=== PATIENT | female | born 1970 | race Two or more races ===

== ENCOUNTER 2020-04-08 08:02 | Outpatient (REF) | payer MEDICAID, SELFPAY | END 2020-04-08 08:03 | disposition home or self-care (01) | LOC: HO.LAB 08:02 | PROVIDERS: Visit Provider Internal Medicine | DX: Z20.828 Contact with and (suspected) exposure to other viral communicable diseases (principal) | CPT/HCPCS: 36415; C9803; U0003 ==

== ENCOUNTER 2021-02-16 12:51 | Outpatient (REF) | payer MEDICAID, SELFPAY ==
[2021-02-19 02:36] LABS: HPV mRNA E6/E7 rflx Not Detected (Not Detected)
== END 2021-02-16 12:52 | disposition home or self-care (01) ==
LOC: HO.LAB 12:51
PROVIDERS: PCP Nurse Practitioner Women's Health; Visit Provider Obstetrics & Gynecology
DX: Z01.419 Encounter for gynecological examination (general) (routine) without abnormal findings (principal); Z11.51 Encounter for screening for human papillomavirus (HPV)
CPT/HCPCS: 87624; 88142

== ENCOUNTER 2021-03-17 08:46 | Emergency (ER) | payer MEDICAID, SELFPAY ==
--- NOTE | ~2021-03-17 | XR_ITS ---
EXAMINATION: XR CHEST CLINICAL INFORMATION: Chest pain COMPARISON: Chest 12/08/2018 TECHNIQUE: Frontal view of the chest was obtained. FINDINGS: The lungs are well-expanded and clear of acute process. The heart size and pulmonary vascularity is normal. No gross bony abnormality seen. XR/XR chest 1V IMPRESSION: Unremarkable chest exam.
--- NOTE | 2021-03-17 08:49 | ECG_ITS ---
Test Reason : chest pain Blood Pressure : / mmHG Vent. Rate : 078 BPM Atrial Rate : 078 BPM P-R Int : 160 ms QRS Dur : 074 ms QT Int : 376 ms P-R-T Axes : 046 064 038 degrees QTc Int : 428 ms Normal sinus rhythm Normal ECG No previous ECGs available Referred By: Generic ED Physician Electronically Signed By:VERNA POWELL MD
[2021-03-17 09:09] VITALS: BP 135/90; PULSE 78; RESP 18; TEMP 36.9; O2SAT 98; BMI 28.5
[2021-03-17 10:22] LABS: MANUAL DIFF FLAG NO
[2021-03-17 10:25] LABS: Basophils Percent Auto 0.4 % (0-2); Eosinophils Absolute Auto 0.1 X10*3/uL (0.0-0.4); Eosinophils Percent Auto 1.1 % (0-4); Hematocrit 41.1 % (37.0-47.0); Hemoglobin 13.7 g/dl (12.0-16.0); Imm Gran Abs Auto 0.01 X10*3/uL (0.00-0.03); Imm Gran Pct Auto 0.2 % (0.0-0.4); Lymphocytes Absolute Auto 1.8 X10*3/uL (1.2-4.9); Lymphocytes Percent Auto 33.9 % (20-40); Mean Corpuscular HGB Conc 33.3 g/dl (31.0-35.0); Mean Corpuscular Hemoglobin 33.2 pg (27.0-33.0); Mean Corpuscular Volume 99.5 fL (80.0-98.0); Mean Platelet Volume 10.2 fL (9.4-12.3); Monocytes Absolute Auto 0.6 X10*3/uL (0.1-1.2); Monocytes Percent Auto 11.7 % (2-11); Neutrophils Absolute Auto 2.9 x10*3/uL (2.0-8.3); Neutrophils Percent Auto 52.7 % (45-73); Platelet Count 290 X10*3/uL (160-400); Red Blood Count 4.13 X10*6/uL (4.20-5.50); Red Cell Distribution Width 12.4 % (11.0-16.0); White Blood Count 5.4 X10*3/uL (4.8-10.8)
[2021-03-17 10:43] LABS: Anion Gap 12 (12-20); Blood Urea Nitrogen 14 mg/dL (9-16); Calcium 9.9 mg/dL (8.4-10.2); Carbon Dioxide 27 mmol/L (22-29); Chloride 105 mmol/L (96-108); Creatinine Clr Calc Pharmacy 75.7; Estimated Glomerular Filt Rate > 60; Glucose Random 112 mg/dL (60-115); Sodium 140 mmol/L (135-145)
[2021-03-17 10:44] LABS: Troponin-I High Sensitivity < 3.5 ng/L (<3.5-17.0)
--- NOTE | 2021-03-17 14:01 | ED.CHESTPAIN ---
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 Chest pain localized in the lower chest and epigastric area, pain started 2 weeks ago as intermittent burning pain in the lower chest area, no radiation, pain is aggravated by any food that patient eat, no relieving factor, no other associated symptoms like shortness of breath, nausea, or vomiting. Patient declined losing weight, patient is active do walks frequently never had exertional chest pain. Related Data Previous Rx's Medication Instructions Recorded omeprazole magnesium 20 mg 20 mg PO BID #30 tab 03/17/21 tablet,delayed release (Prilosec OTC) Allergies Allergy/AdvReac Type Severity Reaction Status Date / Time No Known Allergies Allergy Mild N/A Verified 02/16/21 13:17 Review of Systems Review of Systems: All other systems are reviewed and are negative Constitutional: Reports as per HPI and Reports no additional constitutional complaints Eyes: Reports as per HPI and Reports no additional eye complaints Reports system reviewed and no additional complaints, except as documented Cardiovascular: Reports as per HPI and Reports no additional cardiovascular complaints Respiratory: Reports as per HPI and Reports no additional respiratory complaints Gastrointestinal: Reports as per HPI and Reports no additional gastrointestinal complaints Genitourinary: Reports no additional female genitourinary complaints Musculoskeletal: Reports no additional musculoskeletal complaints Skin/Breast: Reports system reviewed and no additional complaints, except as docu Psychiatric: Reports no additional psychiatric complaints Endocrine: Reports no additional endocrine complaints Hematologic/Lymphatic: Reports no additional hematologic/lymphatic complaints Allergic/Immunologic: Reports no additional allergic/immunologic complaints Reports system reviewed and no additional complaints, except as documented and Reports Abnormal speech present PMFSH Past Medical History Medical History Epilepsy High cholesterol Surgical History Hx of section Tubal ligation status Social History Social History Patient Tobacco Use Status: Never used Tobacco Advance Directives: No Advance Directives Information Provided: Yes Physical Exam Vital Signs: Vital Signs: Last Vital Signs Temp 98.4 F 03/17/21 09:09 Pulse 78 03/17/21 09:09 Resp 18 03/17/21 09:09 BP 135/90 H 03/17/21 09:09 Pulse Ox 98 03/17/21 09:09 BMI result Body Mass Index 28.5 Vital signs have been reviewed as appeared to be correct. Blood pressure normal. Heart rate normal. Respiration rate normal. Temperature normal. Oxygen saturation normal. Appearance: Alert. Oriented X3. No acute distress. Head: Normal external exam. Normocephalic. Atraumatic. No Bailey signs noted. No raccoon eyes noted Eyes: PERRLA. EOMI. Conjunctiva and sclera normal. Eyelids normal. ENT: TM's Normal. Pharynx normal. Uvula midline. Moist mucous membranes. No trismus noted. No drooling noted. No muffled voice noted. Neck: Normal inspection. Neck supple. FROM. No adenopathy. Thyroid Normal. No meningeal signs. No neck mass noted. CVS: Normal heart rate and rhythm. Heart sound normal. No murmurs noted. Pulses normal throughout. Respiratory: No respiratory distress. Painless inspiration. Breath sounds normal. No wheezes/rales/rhonchi noted. Chest nontender. No accessory muscle usage noted or decreased air movement noted. Abdomen: Soft, mild tenderness in the epigastric/lower chest with no rebound, no guarding. Bowel sounds normal in all 4 quadrants. No distention noted. No organomegaly noted. No visible injury noted. Back: No CVA tenderness. Full range of motion noted. Skin: Skin warm and dry. Normal skin color. Normal skin turgor. No rashes/lesions/lacerations noted. Extremities: No lower extremity edema. Extremities exhibit normal range of motion. Extremities nontender. Neuro: Oriented X 3. Cranial nerve exam: II-XII are grossly intact No motor deficit. No sensory deficit. Reflexes normal. Course Course Course Narrative: Assessment and plan. 50-year-old female came in with epigastric pain only related to food but not exertion, patient has unremarkable workup in the emergency department. Physical exam/history is more consistent of gastritis. Will start the patient on PPI and follow-up with GI. MDM - Chest Pain Medical Records Data Attestation: I reviewed the patient's medical records. Lab Data Attestation: I reviewed the patient's lab results. Result diagrams: 03/17/21 10:12 03/17/21 10:12 Labs: Lab Results 03/17/21 03/17/21 03/17/21 Range/Units 10:12 10:12 10:12 WBC 5.4 (4.8-10.8) X10*3/uL RBC 4.13 L (4.20-5.50) X10*6/uL Hgb 13.7 (12.0-16.0) g/dl Hct 41.1 (37.0-47.0) % MCV 99.5 H (80.0-98.0) fL MCH 33.2 H (27.0-33.0) pg MCHC 33.3 (31.0-35.0) g/dl RDW 12.4 (11.0-16.0) % Plt Count 290 (160-400) X10*3/uL MPV 10.2 (9.4-12.3) fL Immature Gran % (Auto) 0.2 (0.0-0.4) % Neut % (Auto) 52.7 (45-73) % Lymph % (Auto) 33.9 (20-40) % [place] % (Auto) 11.7 H (2-11) % Eos % (Auto) 1.1 (0-4) % Baso % (Auto) 0.4 (0-2) % Lymph # (Auto) 1.8 (1.2-4.9) X10*3/uL [place] # (Auto) 0.6 (0.1-1.2) X10*3/uL Eos # (Auto) 0.1 (0.0-0.4) X10*3/uL Baso # (Auto) 0.0 (0.0-0.2) X10*3/uL Abs Immat Gran (auto) 0.01 (0.00-0.03) X10*3/uL Absolute Neuts (auto) 2.9 (2.0-8.3) x10*3/uL Absolute Nucleated RBC 0.000 (0.0-0.012) X10*3/uL Nucleated RBC % (auto) 0.0 (0.0-0.2) /100WBC Sodium 140 (135-145) mmol/L Potassium 4.0 (3.3-5.1) mmol/L Chloride 105 (96-108) mmol/L Carbon Dioxide 27 (22-29) mmol/L Anion Gap 12 (12-20) BUN 14 (9-16) mg/dL Creatinine 0.81 (0.5-1.4) mg/dL Estim Creat Clear Calc 75.7 Estimated GFR > 60 Random Glucose 112 (60-115) mg/dL Calcium 9.9 (8.4-10.2) mg/dL Troponin I High Sens < 3.5 (<3.5-17.0) ng/L Imaging Data Chest x-ray: Attestation: I personally reviewed and interpreted this imaging study as follows: Radiologist's impression: No acute pathology. ECG Data ECG #1: Attestation: I personally reviewed and interpreted this ECG as follows: Interpretation: Normal sinus rhythm at 78 beats per minutes, normal axis deviation, normal intervals, no ST-T changes. Discharge Plan Discharge Clinical Impression: Chest pain Patient Disposition: Home, Self-Care Instructions: Chest Pain (ED), Gastritis (ED) Prescriptions: New omeprazole magnesium [Prilosec OTC] 20 mg tablet,delayed release (DR/EC) 20 mg PO BID Qty: 30 RF: 0 Referrals: Gillian Gerardo MD [Physician] - 2 days Cassidy Garrison NP [Primary Care Provider] - 2 days
== END 2021-03-17 14:22 | disposition home or self-care (01) ==
PROVIDERS: Emergency Provider Emergency Medicine; PCP Nurse Practitioner Women's Health
DX: R07.9 Chest pain, unspecified (principal)
CPT/HCPCS: 36415; 71045; 80048; 84484; 85025; 93005; 99283

== ENCOUNTER → 2021-07-02 10:27 | Outpatient (BNVA) | payer MEDICAID, SELFPAY | PROVIDERS: PCP Nurse Practitioner Women's Health; Visit Provider Nurse Practitioner | DX: Z01.818 Encounter for other preprocedural examination (principal); R13.10 Dysphagia, unspecified; J45.909 Unspecified asthma, uncomplicated; G40.909 Epilepsy, unspecified, not intractable, without status epilepticus; Z79.899 Other long term (current) drug therapy | CPT/HCPCS: 99202 ==

== ENCOUNTER 2021-07-05 12:26 | Day surgery (SDC) | payer MEDICAID, SELFPAY ==
[2021-07-05 12:49] VITALS: BP 121/69; PULSE 64; RESP 16; TEMP 36.8; O2SAT 97; BMI 26.6
--- NOTE | 2021-07-05 14:02 | HO.ANESPROP2 ---
[facility] Active Problems Active Problems: All Active Problems (Updated 07/01/21 @ 19:44 by DARIANA Salguero) Lumbar radiculopathy (Acute) Depression (Acute) High cholesterol (Acute) Epilepsy (Acute) Asthma (Acute) Well woman exam (Acute) Past Medical History Medical History Epilepsy High cholesterol Surgical History Surgical History H/O rectal sphincterotomy Hx of section Tubal ligation status History of Problems with Anesthesia: No Social History Social History Patient Tobacco Use Status: Former Tobacco user Quit Date: 15 yrs ago Use of substances other than those prescribed or required for medical reasons: No Are you DNR?: No Advance Directives: No Advance Directives Information Provided: Yes Meds Allergies Allergy/AdvReac Type Severity Reaction Status Date / Time No Known Allergies Allergy Mild N/A Verified 07/02/21 10:55 Home Medications Medication Instructions Recorded Confirmed Last Taken Type albuterol sulfate 90 mcg/actuation 2 puff INHALATION QID 07/02/21 Unknown History aerosol inhaler (ProAir HFA) atorvastatin 40 mg tablet 40 mg PO DAILY 07/02/21 Unknown History cholecalciferol (vitamin D3) 50 50 mcg PO DAILY 07/02/21 Unknown History mcg (2,000 unit) capsule divalproex 500 mg tablet,extended 500 mg PO BID 07/02/21 Unknown History release 24 hr fluoxetine 20 mg tablet 20 mg PO DAILY 07/02/21 Unknown History pantoprazole 40 mg tablet,delayed 40 mg PO DAILY 07/02/21 Unknown History release trazodone 100 mg tablet 50 - 100 mg PO BEDTIME PRN 07/02/21 Unknown History Exam Exam Date and Time: July 05, 2021 1402 Height,Weight and Vital Signs: Height 5 ft 2 in Weight 66.224 kg Last Vital Signs Temp 98.3 F 07/05/21 12:49 Pulse 64 07/05/21 12:49 Resp 16 07/05/21 12:49 BP 121/69 07/05/21 12:49 Pulse Ox 97 07/05/21 12:49 Airway Mallampati Class: II TM Dist: >3cm Neck ROM: Full Loose/Missing/Broken Teeth: No Heart: RRR Lungs: CTA Assessment and Plan Assessment Anesthesia Assessment: Anesthesia Plan Discussed and Chart Reviewed Final Anesthetic Review History of Problems with Anesthesia: No NPO: Yes ASA Class: II Final Preanesthetic Review: Meds/Allgs Chart Reviewed, Consent Obtained/Reviewed and Anes Risks/Benef Reviewed Patient Risk: Low Procedure Risk: Intermediate Anesthetic Plan Anesthetic Plan: MAC: Disposition: Standard PACU
--- NOTE | 2021-07-05 14:31 | MHC.SHP ---
Pre-Procedural Eval Section A Date of Service: 07/05/21 The patient is an INPATIENT: No The History & Physical has been completed within 30 days and I have reviewed it.: Yes Section B Chief Complaint: screening Relevant Family History (Specify if Yes): No Relevant Social History: None Present Medications: see Short Stay Collaborative assessment Medical History: Significant History (asthma High cholesterol Seizure disorder Depression Lumbar radiculopathy) History of Previous Operations: Relevant previous surgery/procedure and date(s) (H/O rectal sphincterotomy Hx of section Tubal ligation status) Allergies: Allergies Allergy/AdvReac Type Severity Reaction Status Date / Time No Known Allergies Allergy Mild N/A Verified 07/02/21 10:55 Review of Systems Sugical H&P ROS: Negative: Constitution, Cardiovascular and Respiratory and Yes, Specify: Gastrointestinal (GERD, dysphagia) Exam Surgical H&P Exam: Normal: Heart, Normal: Lungs, Normal: Extremities and Normal: Abdomen Plan Diagnosis/Plan: Change (Proceed with EGD and colonoscopy) I have reviewed the history and physical and performed a pertinent physical examination on my patient. No changes have occurred unless specified.
--- NOTE | 2021-07-05 14:36 | P.BOP_ITS ---
Brief Operative Note Date of Service: 07/05/21 Pre-op diagnosis: Colon cancer screening, atypical chest pain, GERD, dysphagia Post-op diagnosis: other (Schatzki's ring, Gastritis, colon polyps, diverticulosis, hemorrhoids) Procedure: FLEXIBLE TRANSORAL UPPER GASTROINTESTINAL ENDOSCOPY WITH BIOPSIES AND ESOPHAGEAL BALLOON DILATION AND COLONOSCOPY TILL CECUM WITH BIOPSIES UPPER ENDOSCOPY Consent: Indications for the procedure and potential complications of bleeding, perforation, reaction to medications and missed diagnosis were discussed with the patient with the help of a [place] language translator and informed consent was obtained. Instrument: Olympus GIF H 190 mid size upper endoscope Monitoring: Vital signs and clinical assessment, continuous EKG monitoring, Pulse oximetry, Carbon Dioxide monitoring and blood pressure monitoring were done throughout the procedure. Procedure: The patient was placed in the left lateral decubitis position and pre-procedure medications were administered and a bite block was placed. The endoscope was inserted into the mouth and advanced under direct vision to the third part of duodenum. A careful inspection was made as the upper endoscope was withdrawn including a retroflexed examination of the proximal stomach; Findings and interventions are described below. Findings: Larynx: Edema of arytenoid cartilages Esophagus: GE junction at 34 cms, small hiatal hernia 34 to 36 cms. Mildly tortuous esophagus with a partially obstructing Schatzki's ring - biopsies were obtained from proximal esophagus to check for EOE. No esophagitis or Simpson's. Balloon dilation was performed with a 20 mm (60 F) CRE balloon for 60 seconds Stomach: Mild gastric erythema. Biopsies were obtained. Grade 2 flap valve on retroflexed examination of the cardia. Duodenum: Normal bulb and descending duodenum. Biopsies were obtained from 3rd part of the duodenum to check for celiac sprue Intervention: Biopsies and esophageal balloon dilation as noted above COLONOSCOPY PROCEDURE NOTE Consent: Indications for the procedure and potential complications of bleeding, perforation, reaction to medications and missed diagnosis were discussed with the patient and informed consent was obtained. Instrument: Olympus PCF H 190 L variable stiffness pediatric colonoscope Monitoring: Vital signs and clinical assessment, intermittent blood pressure monitoring, continuous EKG monitoring, Pulse oximetry and Carbon Dioxide monitoring were done throughout the procedure. Colon withdrawl time was 18 minutes. Procedure: The patient was placed in the left lateral decubitis position and pre-procedure medications were administered. After a digital rectal examination of the ano-rectum, the video colonoscope was inserted into the rectum and advanced through the colon to the cecum. The colonoscope was slowly withdrawn in a retrograde panoramic fashion and the colon mucosa was carefully examined including a retroflexed view of the rectum. Findings and interventions are described below. Procedure Difficulty: : Without difficulty Findings: Terminal Ileum: Distal 5 cm was examined and appeared normal Cecum: Prominent ileocecal valve- biopsied Ascending Colon: Normal Transverse Colon: A 2-3 mm polyp removed with the cold biopsy Descending Colon: Normal Sigmoid Colon: A 3-4 mm diminutive appearance polyp removed with the cold biopsy. Moderate diverticulosis Rectum: Normal Ano-rectum: Moderate internal hemorrhoids Colon preparation: Good after copious irrigation Impression and Post Procedure Diagnosis: Endoscopy Findings: LARYNX: Changes suggestive of LPRD ESOPHAGUS: GE junction at 34 cms, small hiatal hernia 34 to 36 cms. Mildly tortuous esophagus with a partially obstructing Schatzki's ring - biopsies were obtained from proximal esophagus to check for EOE. No esophagitis or Simpson's. Balloon dilation was performed with a 20 mm (60 F) CRE balloon for 60 seconds STOMACH: Mild gastric erythema. Biopsies were obtained. Grade 2 flap valve on retroflexed examination of the cardia. DUODENUM: Normal bulb and descending duodenum. Biopsies were obtained from 3rd part of the duodenum to check for celiac sprue Colonoscopy Findings: Two tiny polyps removed Moderate diverticulosis seen in the left colon Moderate hemorrhoids on retroflexed exam. Plan: Await pathology results Patient has an appointment on 07/23/21 in the GI Clinic with Juliane Gomez NP. If pt has continuing issues with dysphagia, consider further evaluation with a barium swallow. Repeat Colonoscopy interval based on path results - in 5 years if polyps are adenomatous (needs addition of Bisacodyl tablets to the prep for future colonoscopies) and 10 years if polyps are hyperplastic. Above findings were reviewed with the patient (with the help of a [place] language translator) and GERD, colon polyps and diverticulosis handouts were given in the discharge area Surgeon: Se Echeverria MD Anesthesia: MAC (Dr Garcia) Was an Instrument Lens Inspector used for this Procedure?: No Instrument Lens Inspector: Lisette Gonzalez Estimated blood loss (mL): 0 Pathology: other (A. small bowel bxs, R/O celiac B. gastric antrum bxs, R/O H. pylori C. proximal esophagus bxs, R/O EOE D. ileocecal valve bxs E. transverse colon polyp F. sigmoid polyp) Condition: stable Disposition: PACU
--- NOTE | 2021-07-05 14:37 | W.PM.OPN ---
Operative Note Operative Note Date of Service: 07/05/21 Narrative: Pre-op diagnosis: Colon cancer screening, atypical chest pain, GERD, dysphagia Post-op diagnosis:?other (Schatzki's ring, Gastritis, colon polyps, diverticulosis, hemorrhoids) Procedure: FLEXIBLE TRANSORAL UPPER GASTROINTESTINAL ENDOSCOPY WITH BIOPSIES AND ESOPHAGEAL BALLOON DILATION AND COLONOSCOPY TILL CECUM WITH BIOPSIES UPPER ENDOSCOPY Consent:?Indications for the procedure and potential complications of bleeding, perforation, reaction to medications and missed diagnosis were discussed with the patient with the help of a Armenian english language learner tutor and informed consent was obtained. Instrument:?Olympus GIF H 190 mid size upper endoscope Monitoring: Vital signs and clinical assessment, continuous EKG monitoring, Pulse oximetry, Carbon Dioxide monitoring and blood pressure monitoring were done throughout the procedure. Procedure:?The patient was placed in the left lateral decubitis position and pre-procedure medications were administered and a bite block was placed. The endoscope was inserted into the mouth and advanced under direct vision to the third part of duodenum. A careful inspection was made as the upper endoscope was withdrawn including a retroflexed examination of the proximal stomach; Findings and interventions are described below. Findings: Larynx:? Edema of arytenoid cartilages Esophagus:?GE junction at 34 cms, small hiatal hernia 34 to 36 cms. Mildly tortuous esophagus with a partially obstructing Schatzki's ring - biopsies were obtained from proximal esophagus to check for EOE.? No esophagitis or Simpson's. Balloon dilation was performed with a 20 mm (60 F) CRE balloon for 60 seconds Stomach:?Mild gastric erythema. Biopsies were obtained. Grade 2 flap valve on retroflexed examination of the cardia. Duodenum:?Normal bulb and descending duodenum.? Biopsies were obtained from 3rd part of the duodenum to check for celiac sprue Intervention:?Biopsies and esophageal balloon dilation as noted above COLONOSCOPY PROCEDURE NOTE Consent:?Indications for the procedure and potential complications of bleeding, perforation, reaction to medications and missed diagnosis were discussed with the patient and informed consent was obtained. Instrument:?Olympus PCF H 190 L variable stiffness pediatric colonoscope Monitoring:?Vital signs and clinical assessment, intermittent blood pressure monitoring, continuous EKG monitoring, Pulse oximetry and Carbon Dioxide monitoring were done throughout the procedure. Colon withdrawl time was 18 minutes. Procedure:?The patient was placed in the left lateral decubitis position and pre-procedure medications were administered. After a digital rectal examination of the ano-rectum, the video colonoscope was inserted into the rectum and advanced through the colon to the cecum. The colonoscope was slowly withdrawn in a retrograde panoramic fashion and the colon mucosa was carefully examined including a retroflexed view of the rectum. Findings and interventions are described below. Procedure Difficulty:?: Without difficulty Findings: Terminal Ileum: Distal 5 cm was examined and appeared normal Cecum:? Prominent ileocecal valve- biopsied Ascending Colon:??Normal Transverse Colon:??A 2-3 mm polyp removed with the cold biopsy Descending Colon:? Normal Sigmoid Colon:??A 3-4 mm diminutive appearance polyp removed with the cold biopsy.? ?Moderate diverticulosis Rectum:??Normal Ano-rectum:??Moderate internal hemorrhoids Colon preparation:??Good after copious irrigation Impression and Post Procedure Diagnosis: Endoscopy Findings: LARYNX: Changes suggestive of LPRD ESOPHAGUS: GE junction at 34 cms, small hiatal hernia 34 to 36 cms. Mildly tortuous esophagus with a partially obstructing Schatzki's ring - biopsies were obtained from proximal esophagus to check for EOE. No esophagitis or Simpson's. Balloon dilation was performed with a 20 mm (60 F) CRE balloon for 60 seconds STOMACH: Mild gastric erythema. Biopsies were obtained. Grade 2 flap valve on retroflexed examination of the cardia. DUODENUM:? Normal bulb and descending duodenum.? Biopsies were obtained from 3rd part of the duodenum to check for celiac sprue Colonoscopy Findings: Two tiny polyps removed Moderate diverticulosis seen in the left colon Moderate hemorrhoids on retroflexed exam. Plan: Await pathology results Patient has an appointment on 07/23/21 in the GI Clinic with? Juliane Gomez NP. If pt has continuing issues with dysphagia, consider further evaluation with a barium swallow. Repeat Colonoscopy interval based on path results - in 5 years if polyps are adenomatous (needs addition of Bisacodyl tablets to the prep for future colonoscopies) and 10 years if polyps are hyperplastic. Above findings were reviewed with the patient (with the help of a Armenian english language learner tutor) and GERD, colon polyps and diverticulosis handouts were given in the discharge area Surgeon: Se Echeverria MD Anesthesia:?MAC (Dr Garcia) Was an Shopper Marketing Manager used for this Procedure?:?No Shopper Marketing Manager:?Lisette Gonzalez Estimated blood loss (mL):?0 Pathology:?other (A. small bowel bxs, R/O celiac? B. gastric antrum bxs, R/O H. pylori? C. proximal esophagus bxs, R/O EOE? D. ileocecal valve bxs? E. transverse colon polyp? F. sigmoid polyp) Condition:?stable Disposition:?PACU
[2021-07-05] MEDS: Lactated Ringers 1,000 ML 50 ML IVCONT (14:46)
[2021-07-05 15:42] VITALS: BP 94/70; PULSE 82; RESP 20; TEMP 36.8; O2SAT 96
[2021-07-05 16:00] VITALS: BP 133/79; PULSE 63; RESP 18; TEMP 36.7; O2SAT 97
== END 2021-07-05 16:18 | disposition home or self-care (01) ==
PROVIDERS: PCP Nurse Practitioner Women's Health; Visit Provider Internal Medicine Gastroenterology
PROC: (CPT 45380; principal; 2021-07-05 14:40)
DX: Z12.11 Encounter for screening for malignant neoplasm of colon (principal); K63.5 Polyp of colon; K57.30 Diverticulosis of large intestine without perforation or abscess without bleeding; K64.8 Other hemorrhoids; K22.2 Esophageal obstruction; R13.10 Dysphagia, unspecified; K21.9 Gastro-esophageal reflux disease without esophagitis; R07.89 Other chest pain; K29.50 Unspecified chronic gastritis without bleeding; K44.9 Diaphragmatic hernia without obstruction or gangrene; G40.909 Epilepsy, unspecified, not intractable, without status epilepticus; E78.00 Pure hypercholesterolemia, unspecified; J45.909 Unspecified asthma, uncomplicated; Z79.899 Other long term (current) drug therapy; Z87.891 Personal history of nicotine dependence
CPT/HCPCS: 45380; 43249; 43239; 88305; 88342; C1726

== ENCOUNTER → 2022-03-22 11:42 | Outpatient (BNVA) | payer MEDICAID, SELFPAY | PROVIDERS: PCP Nurse Practitioner Women's Health; Visit Provider Nurse Practitioner | DX: Z12.11 Encounter for screening for malignant neoplasm of colon (principal); R13.10 Dysphagia, unspecified; A04.8 Other specified bacterial intestinal infections | CPT/HCPCS: 99212 ==

== ENCOUNTER → 2022-05-04 09:14 | Outpatient (BNVA) | payer MEDICAID, SELFPAY | PROVIDERS: PCP Nurse Practitioner Women's Health; Visit Provider Obstetrics & Gynecology | DX: Z13.89 Encounter for screening for other disorder (principal) ==

== ENCOUNTER → 2022-05-20 12:20 | Outpatient (BNVA) | payer MEDICAID, SELFPAY | PROVIDERS: PCP Nurse Practitioner Women's Health; Visit Provider Nurse Practitioner | DX: Z13.89 Encounter for screening for other disorder (principal) ==

== ENCOUNTER 2022-05-20 16:16 | Outpatient (REF) | payer MEDICAID, SELFPAY ==
[2022-05-22 13:35] LABS: H Pylori Breath Test Negative (Negative)
== END 2022-05-20 16:17 | disposition home or self-care (01) ==
LOC: HO.LNP 16:16
PROVIDERS: Visit Provider Nurse Practitioner
DX: A04.8 Other specified bacterial intestinal infections (principal)
CPT/HCPCS: 83013

== ENCOUNTER 2022-09-01 13:47 | Outpatient (REF) | payer OTHER, SELFPAY ==
[2022-09-01 14:48] LABS: MANUAL DIFF FLAG NO
[2022-09-01 15:02] LABS: Basophils Absolute Auto 0.1 X10*3/uL (0.0-0.2); Basophils Percent Auto 0.8 % (0-2); Eosinophils Absolute Auto 0.1 X10*3/uL (0.0-0.4); Eosinophils Percent Auto 1.5 % (0-4); Hematocrit 39.4 % (37.0-47.0); Hemoglobin 13.1 g/dl (12.0-16.0); Imm Gran Abs Auto 0.02 X10*3/uL (0.00-0.03); Imm Gran Pct Auto 0.3 % (0.0-0.4); Lymphocytes Absolute Auto 2.7 X10*3/uL (1.2-4.9); Lymphocytes Percent Auto 40.8 % (20-40); Mean Corpuscular HGB Conc 33.2 g/dl (31.0-35.0); Mean Corpuscular Volume 99.2 fL (80.0-98.0); Mean Platelet Volume 10.6 fL (9.4-12.3); Monocytes Absolute Auto 0.9 X10*3/uL (0.1-1.2); Monocytes Percent Auto 13.7 % (2-11); Neutrophils Absolute Auto 2.8 x10*3/uL (2.0-8.3); Neutrophils Percent Auto 42.9 % (45-73); Platelet Count 303 X10*3/uL (160-400); Red Blood Count 3.97 X10*6/uL (4.20-5.50); White Blood Count 6.5 X10*3/uL (4.8-10.8)
[2022-09-01 15:34] LABS: Alanine Aminotransferase 26 U/L (0-31); Albumin Level 4.2 g/dL (3.5-5.0); Alkaline Phosphatase 64 U/L (39-117); Anion Gap 12 (12-20); Aspartate Amino Transferase 25 U/L (5-31); Bilirubin Total 0.3 mg/dL (0.0-1.0); Blood Urea Nitrogen 16 mg/dL (9-16); Calcium 9.8 mg/dL (8.4-10.2); Carbon Dioxide 29 mmol/L (22-29); Chloride 102 mmol/L (96-108); Estimated Glomerular Filt Rate > 60; Glucose Random 84 mg/dL (60-115); Potassium 4.3 mmol/L (3.3-5.1); Sodium 139 mmol/L (135-145); Total Protein 7.3 g/dL (6.5-8.0)
== END 2022-09-01 13:48 | disposition home or self-care (01) ==
LOC: HO.LAB 13:47
PROVIDERS: PCP Nurse Practitioner Women's Health; Visit Provider Nurse Practitioner
DX: R13.10 Dysphagia, unspecified (principal); A04.8 Other specified bacterial intestinal infections
CPT/HCPCS: 36415; 80053; 85025; 99212

== ENCOUNTER 2022-09-06 12:03 | Outpatient (REF) | payer OTHER, SELFPAY | END 2022-09-06 12:04 | disposition home or self-care (01) | LOC: HO.LNP 12:03 | PROVIDERS: Visit Provider Nurse Practitioner | DX: A04.8 Other specified bacterial intestinal infections (principal) | CPT/HCPCS: 87338 ==

== ENCOUNTER 2022-09-12 10:18 | Day surgery (SDC) | payer OTHER, SELFPAY ==
[2022-09-12 11:06] VITALS: BP 135/82; PULSE 64; RESP 16; TEMP 36.4; O2SAT 96; BMI 26.5
--- NOTE | 2022-09-12 11:25 | HO.ANESPROP2 ---
Documented by User: Eveline Sinclair NP 09/09/22 13:06 HPI - Anesthesia Eval Consult details Narrative: 51yo F for Upper Endoscopy PMFSH Active Problems Active Problems: All Active Problems (Updated 03/22/22 @ 12:00 by DARIANA Salguero) H. pylori infection (Acute) Dysphagia (Acute) Colon cancer screening (Acute) Lumbar radiculopathy (Acute) Depression (Acute) High cholesterol (Acute) Epilepsy (Acute) Asthma (Acute) Well woman exam (Acute) Past Medical History Medical History Epilepsy High cholesterol Family History Family History Mother HTN (hypertension) Hypothyroidism Hyperlipidemia Surgical History Surgical History H/O colonoscopy H/O rectal sphincterotomy History of esophagogastroduodenoscopy (EGD) Hx of section Tubal ligation status History of Problems with Anesthesia: No Social History Social History Household Members: None Housing: Apartment Alcohol intake: current Alcohol intake frequency: holidays/special occasions only Patient Tobacco Use Status: Former Tobacco user Quit Date: 15 yrs ago Use of substances other than those prescribed or required for medical reasons: No Advance Directives: No Advance Directives Information Provided: Yes Current occupational status: unemployed Sexual orientation: Straight/Heterosexual Gender identity: Female Meds Allergies Allergy/AdvReac Type Severity Reaction Status Date / Time No Known Allergies Allergy Mild N/A Verified 05/04/22 09:27 Home Medications Medication Instructions Recorded Confirmed Last Taken Type albuterol sulfate 90 mcg/actuation 2 puff inhalation QID 07/02/21 Unknown History aerosol inhaler (ProAir HFA) atorvastatin 40 mg tablet 40 mg PO DAILY 07/02/21 Unknown History cholecalciferol (vitamin D3) 50 50 mcg PO DAILY 07/02/21 Unknown History mcg (2,000 unit) capsule divalproex 500 mg tablet,extended 500 mg PO BID 07/02/21 Unknown History release 24 hr trazodone 100 mg tablet 50 - 100 mg PO BEDTIME PRN insomnia 07/02/21 Unknown History fluoxetine 20 mg capsule 60 mg PO DAILY 09/01/22 Unknown History Exam Exam Date and Time: September 09, 2022 1306 Pertinent Lab Results Pertinent Lab Results: Laboratory Tests 09/01/22 09/01/22 14:46 14:46 WBC 6.5 Hgb 13.1 Hct 39.4 Plt Count 303 Sodium 139 Potassium 4.3 Chloride 102 Carbon Dioxide 29 BUN 16 Creatinine 0.95 Assessment and Plan Assessment Anesthesia Assessment: Chart Reviewed Final Anesthetic Review History of Problems with Anesthesia: No Documented by User: Mary Jefferson DO 09/12/22 11:25 PMFSH Past Medical History Medical History Epilepsy High cholesterol Family History Family History Mother HTN (hypertension) Hypothyroidism Hyperlipidemia Surgical History Surgical History H/O colonoscopy H/O rectal sphincterotomy History of esophagogastroduodenoscopy (EGD) Hx of section Tubal ligation status History of Problems with Anesthesia: No Social History Social History Household Members: None Housing: Apartment Alcohol intake: current Alcohol intake frequency: holidays/special occasions only Patient Tobacco Use Status: Former Tobacco user Quit Date: 15 yrs ago Use of substances other than those prescribed or required for medical reasons: No Advance Directives: No Advance Directives Information Provided: Yes Current occupational status: unemployed Sexual orientation: Straight/Heterosexual Gender identity: Female Meds Allergies Allergy/AdvReac Type Severity Reaction Status Date / Time No Known Allergies Allergy Mild N/A Verified 05/04/22 09:27 Home Medications Medication Instructions Recorded Confirmed Last Taken Type albuterol sulfate 90 mcg/actuation 2 puff inhalation QID 07/02/21 Unknown History aerosol inhaler (ProAir HFA) atorvastatin 40 mg tablet 40 mg PO DAILY 07/02/21 Unknown History cholecalciferol (vitamin D3) 50 50 mcg PO DAILY 07/02/21 Unknown History mcg (2,000 unit) capsule divalproex 500 mg tablet,extended 500 mg PO BID 07/02/21 Unknown History release 24 hr trazodone 100 mg tablet 50 - 100 mg PO BEDTIME PRN insomnia 07/02/21 Unknown History fluoxetine 20 mg capsule 60 mg PO DAILY 09/01/22 Unknown History Exam Exam Date and Time: September 12, 2022 1123 Height,Weight and Vital Signs: Vital Signs Temperature 97.6 F 09/12/22 11:06 Pulse Rate 64 09/12/22 11:06 Respiratory Rate 16 09/12/22 11:06 Blood Pressure 135/82 09/12/22 11:06 Pulse Oximetry 96 09/12/22 11:06 Oxygen Delivery Method Room Air 09/12/22 11:06 Temperature 97.6 F 09/12/22 11:06 Pulse Rate 64 09/12/22 11:06 Respiratory Rate 16 09/12/22 11:06 Blood Pressure 135/82 09/12/22 11:06 Pulse Oximetry 96 09/12/22 11:06 Oxygen Delivery Method Room Air 09/12/22 11:06 Height 5 ft 2 in Weight 65.771 kg Airway Mallampati Class: I TM Dist: >3cm Neck ROM: Full Loose/Missing/Broken Teeth: No Heart: S1S2 Lungs: CTAB Assessment and Plan Assessment Anesthesia Assessment: Anesthesia Plan Discussed and Chart Reviewed Final Anesthetic Review History of Problems with Anesthesia: No NPO: Yes ASA Class: II Final Preanesthetic Review: No Changes in Pt Med Stat, Meds/Allgs Chart Reviewed, Consent Obtained/Reviewed and Anes Risks/Benef Reviewed Patient Risk: Low Procedure Risk: Low Anesthetic Plan Anesthetic Plan: MAC: and Agree w/ Assess. and Plan Disposition: Standard PACU
--- NOTE | 2022-09-12 11:34 | MHC.SHP ---
Pre-Procedural Eval Section A Date of Service: 09/12/22 The patient is an INPATIENT: No Changes since office visit: Yes Patient answered all questions; No Cold of Flu in the past 2 weeks, No New Medical Problems and No Changes in Medication The History & Physical has been completed within 30 days and I have reviewed it.: Yes Section B Chief Complaint: bacterial intestinal infections,Dysphagia Allergies: Allergies Allergy/AdvReac Type Severity Reaction Status Date / Time No Known Allergies Allergy Mild N/A Verified 05/04/22 09:27 Plan I have reviewed the history and physical and performed a pertinent physical examination on my patient. No changes have occurred unless specified. Time Spent With Patient Time: Total time managing care of this patient today ____ minutes.
--- NOTE | 2022-09-12 11:34 | W.PM.OPN ---
Operative Note Operative Note Date of Service: 09/12/22 Narrative: FLEXIBLE TRANSORAL UPPER GASTROINTESTINAL ENDOSCOPY WITH BIOPSIES Pre-op diagnosis: Dysphagia Post-op diagnosis: GERD, dysphagia, gastritis Endoscopist:? Se Echeverria MD Anesthesia:?MAC Consent: Indications for the procedure and potential complications of bleeding, perforation, reaction to medications and missed diagnosis were discussed with the patient with the help of a [place] language and literature division chair and informed consent was obtained. Instrument: Olympus GIF H 190 mid size upper endoscope Monitoring: Vital signs and clinical assessment, continuous EKG monitoring, Pulse oximetry, Carbon Dioxide monitoring and blood pressure monitoring were done throughout the procedure. Procedure: The patient was placed in the left lateral decubitis position and pre-procedure medications were administered and a bite block was placed. The endoscope was inserted into the mouth and advanced under direct vision to the third part of duodenum. A careful inspection was made as the upper endoscope was withdrawn including a retroflexed examination of the proximal stomach; Findings and interventions are described below. Findings: Larynx: Normal Esophagus: GE junction at 35 cms. No esophagitis or Simpson's. Mildly tortuous esophagus without obvious stricture or ring - Empiric balloon dilation was performed with a 20 mm (60 F) CRE balloon for 60 seconds Biopsies obtained from proximal esophagus during last EGD were negative for EOE.? Stomach:?Mild gastric erythema. Biopsies were obtained. Grade 2 flap valve on retroflexed examination of the cardia. Duodenum: Normal bulb and descending duodenum Intervention: Biopsies as noted above Impression and Post Procedure Diagnosis: Endoscopy Findings: ESOPHAGUS: Mildly tortuous esophagus without obvious stricture or ring - Empiric balloon dilation was performed with a 20 mm (60 F) CRE balloon for 60 seconds Biopsies obtained from proximal esophagus during last EGD were negative for EOE.? STOMACH: Mild gastritis Plan: Await pathology results Patient has an appointment on 09/22/22 in the GI [facility] with Juliane Gomez NP. GERD handout was given in the discharge area
[2022-09-12 11:50] VITALS: BP 105/67; PULSE 77; RESP 18; TEMP 36.8; O2SAT 97
[2022-09-12 12:05] VITALS: BP 136/91; PULSE 71; RESP 18; TEMP 36.8; O2SAT 96
--- NOTE | 2022-09-12 13:02 | PC.NURSE ---
discharge instructions given by aileen bah rn. Patient brought to discharge to wait for ride.
== END 2022-09-12 12:50 | disposition home or self-care (01) ==
PROVIDERS: PCP Nurse Practitioner Women's Health; Visit Provider Internal Medicine Gastroenterology
PROC: 0DJ08ZZ Inspection of Upper Intestinal Tract, Via Natural or Artificial Opening Endoscopic (ICD-10-PCS; CPT 43235; principal; 2022-09-12 15:00)
DX: R13.10 Dysphagia, unspecified (principal); K22.89 Other specified disease of esophagus; K29.50 Unspecified chronic gastritis without bleeding; K21.9 Gastro-esophageal reflux disease without esophagitis; E78.00 Pure hypercholesterolemia, unspecified; G40.909 Epilepsy, unspecified, not intractable, without status epilepticus; J45.909 Unspecified asthma, uncomplicated; Z87.891 Personal history of nicotine dependence; Z79.899 Other long term (current) drug therapy
CPT/HCPCS: 43249; 43239; 88305; 88342; C1726

== ENCOUNTER → 2022-09-22 13:29 | Outpatient (BNVA) | payer OTHER, SELFPAY | PROVIDERS: PCP Nurse Practitioner Women's Health; Visit Provider Nurse Practitioner | DX: R13.10 Dysphagia, unspecified (principal); K21.9 Gastro-esophageal reflux disease without esophagitis | CPT/HCPCS: 99212 ==

== ENCOUNTER 2024-01-09 14:18 | Outpatient (AMB) | payer OTHER, SELFPAY ==
--- NOTE | 2024-01-09 14:29 | MHC.OFFVIS ---
Vital Signs 01/09/24 14:49 Height 5 ft 2 in Weight 153 lb 14.122 oz BMI 28.1 BP 187/90 H Blood Pressure Location Lt brachial Position Sitting Pulse 64 Intake Visit Reasons: Follow up Gerd Intake Note: Patient in office today in follow up of GERD. CC: Patient c/o GERD, feeling the food staying stuck in her esophagus. Denies other GI symptoms. 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 She is educated that serial dilations are frequently needed to keep the esophagus open. She continues on her protonix qd. ROV 8 weeks. (2) H. pylori infection: ?Comment: Negative stool study and EGD biopsy 2022 ?Code(s): A04.8 - Other specified bacterial intestinal infections (3) GERD (gastroesophageal reflux disease): ?Code(s): K21.9 - Gastro-esophageal reflux disease without esophagitis CORRESPONDENCE On 08/08/23 @ 13:22 Gauri Ruby Wrote To Gomez,July Pt stopped in office complaining she is having a hard time swallowing, Scheduled pt for 08/11/23 @ 10:30a TODAY'S VISIT [place] #Tristan Live Patient has been lost follow-up since 09/2022 She was away on vacation overseas and that is why she has not been seen in over a year. She was traveling in the [place] and [place]. She has had the problems for >3 mos and has been out of her medications for about the same time, she also had some dietary indiscretions while traveling. Her asthma is well controlled as is her seizure disorder (depakote - via PCP) and she denies cardiac problems. No ID problems. She is agreeable to going for lab work for anesthesia and sedation purposes and preop clearance. Restart bid pantorpazole 40mg and ROV 6 weeks. [facility] Medical History (Updated 03/18/24 @ 17:21 by DARIANA Salguero) Well woman exam Colon cancer screening H. pylori infection High cholesterol Epilepsy Surgical History H/O colonoscopy History of esophagogastroduodenoscopy (EGD) H/O rectal sphincterotomy Tubal ligation status Hx of section Family History Mother HTN (hypertension) Hypothyroidism Hyperlipidemia Social History Household Members: None Housing: Apartment Are you a primary care attendant to a significant other at home: No Do you presently have visiting nurse or other home services: No Alcohol intake: current Alcohol intake frequency: a few times a week Patient Tobacco Use Status: Former Tobacco user Advance Directives: No Advance Directives Information Provided: No Do you have a plan to hurt others: No Plan Current occupational status: unemployed Sexual orientation: Straight/Heterosexual Gender identity: Female Female Reproductive History Menstrual Age of Menarche: 12 Review of Systems Const Denies fatigue, Denies fever(s), Denies night sweats, Denies poor appetite and Denies weight loss ENT Reports Normal hearing present, Denies dental pain, Reports dysphagia, Denies hearing loss, Denies mouth pain, Denies odynophagia, Denies throat swelling, Denies tongue swelling and Reports other (Dentition adequate) Card Reports no additional complaints Resp Reports no additional complaints GI Details: Denies abdominal pain, Denies melena, Denies bloating, Denies hematochezia, Denies constipation, Denies GI cramping, Reports dysphagia, Denies excessive flatus, Denies early satiety, Reports heartburn, Denies diarrhea, Denies nausea, Denies odynophagia, Denies vomiting and Denies hematemesis Skin/Breast Denies pruritus, Denies lesions, Denies rash and Denies jaundice Neuro Reports Normal hearing present and Denies Abnormal speech present Endo Denies fatigue Aller/Immun Denies throat swelling and Denies tongue swelling Physical Exam Vital Signs: Last Vital Signs Pulse 64 01/09/24 14:49 BP 187/90 H 01/09/24 14:49 BMI result Body Mass Index 28.1 Const General: cooperative, no acute distress, well developed and well groomed Nutritional Appearance: average body habitus and well nourished Orientation/consciousness: oriented to person, oriented to place and oriented to time Limitations: No language barrier HEENT Head: Yes normocephalic and Yes atraumatic Eyes General: appearance normal, both eyes and all related structures Pupils: Equal, round and reactive pupils present Neck Neck: Yes normal visual inspection and Yes no lymphadenopathy Thyroid: Thyroid normal Resp Effort & Inspection: normal respiratory effort and able to speak in complete sentences Auscultation: clear to auscultation bilaterally Cardio Rate: regular rate Rhythm: regular rhythm Heart sounds: Normal, physiologic split S2 sound present Peripheral pulses: radial pulses present and posterior tibial pulses present GI Inspection: No distended and No Abdominal panniculus present Palpation (GI): Soft to palpation, nontender, no guarding, not rigid and No hepatosplenomegaly present Percussion: Yes normal to percussion Auscultation: normal bowel sounds Rectal Exam - Female: deferred Skin General skin exam: no rashes or lesions noted, turgor normal, skin not dry, no jaundice, No spider nevi and no striae Rashes: no rashes Nails: normal Neuro General: oriented to person, oriented to place and oriented to time Cranial nerves: Yes Equal, round and reactive pupils present and Yes Normal hearing present Speech: No Abnormal speech present Extrem General: Yes normal to inspection, No clubbing, No cyanosis and No edema Psych Appearance: grossly normal and well kempt Mental Status: mental status grossly normal Speech and movement: Normal speech and movement present Affect: normal affect Attitude: cooperative Thought process: Normal thought process present and not confabulating Thought content: Normal thought content present Insight: Limited insight present (Psych) Judgement: Limited judgement present (Psych) Assessment & Plan Assessment & Plan (1) Pre-op examination: Code(s): Z01.818 - Encounter for other preprocedural examination Category: Medical (2) Dysphagia: Code(s): R13.10 - Dysphagia, unspecified Category: Medical (3) GERD (gastroesophageal reflux disease): Code(s): K21.9 - Gastro-esophageal reflux disease without esophagitis Category: Medical (4) Epilepsy: Code(s): G40.909 - Epilepsy, unspecified, not intractable, without status epilepticus Category: Medical Plan [place] #Tristan Live Patient has been lost follow-up since 09/2022 She was away on vacation overseas and that is why she has not been seen in over a year. She was traveling in the and [place]. She has had the problems for >3 mos and has been out of her medications for about the same time, she also had some dietary indiscretions while traveling. Her asthma is well controlled as is her seizure disorder (depakote - via PCP) and she denies cardiac problems. No ID problems. She is agreeable to going for lab work for anesthesia and sedation purposes and preop clearance. Restart bid pantorpazole 40mg and ROV 6 weeks. Orders: Orders Complete Blood Count Auto Diff 01/09/24 K21.9 - Gastro-esophageal reflux disease without esophagitis, R13.10 - Dysphagia, unspecified EGD - GI Use Only 01/09/24 K21.9 - Gastro-esophageal reflux disease without esophagitis, R13.10 - Dysphagia, unspecified Comprehensive Met. Panel 01/09/24 K21.9 - Gastro-esophageal reflux disease without esophagitis, R13.10 - Dysphagia, unspecified Medications: Changed From pantoprazole 40 mg PO BID 14 days 28 tabs 0RF K21.9 - Gastro-esophageal reflux disease without esophagitis To pantoprazole 40 mg PO BID 60 tabs 6RF 30 days K21.9 - Gastro-esophageal reflux disease without esophagitis Coding Level of Care Code Est Pt Level 4 (42871) Diagnoses Pre-op examination Z01.818 Dysphagia R13.10 GERD (gastroesophageal reflux disease) K21.9 Epilepsy G40.909 Time Spent (min) 34
[2024-01-09 14:49] VITALS: BP 187/90; PULSE 64; BMI 28.1
== END 2024-01-09 15:46 | disposition home or self-care (01) ==
PROVIDERS: PCP Nurse Practitioner Women's Health; Visit Provider Nurse Practitioner
DX: Z01.818 Encounter for other preprocedural examination (principal); R13.10 Dysphagia, unspecified; K21.9 Gastro-esophageal reflux disease without esophagitis; G40.909 Epilepsy, unspecified, not intractable, without status epilepticus
CPT/HCPCS: 99214

== ENCOUNTER → 2024-01-09 14:18 | Outpatient (BNVA) | payer OTHER, SELFPAY | PROVIDERS: PCP Nurse Practitioner Women's Health; Visit Provider Nurse Practitioner | DX: Z01.818 Encounter for other preprocedural examination (principal); K21.9 Gastro-esophageal reflux disease without esophagitis; R13.10 Dysphagia, unspecified; A04.8 Other specified bacterial intestinal infections; G40.909 Epilepsy, unspecified, not intractable, without status epilepticus | CPT/HCPCS: 99212 ==

== ENCOUNTER 2024-01-11 10:53 | Day surgery (SDC) | payer OTHER, SELFPAY ==
--- NOTE | 2024-01-11 11:15 | P.CONAN_ITS ---
[facility] Active Problems Active Problems: All Active Problems GERD (gastroesophageal reflux disease) (Acute) Dysphagia (Acute) Lumbar radiculopathy (Acute) Depression (Acute) High cholesterol (Acute) Epilepsy (Acute) Asthma (Acute) Well woman exam (Acute) Past Medical History Medical History (Updated 01/09/24 @ 14:31 by DARIANA Salguero) Colon cancer screening H. pylori infection High cholesterol Epilepsy Family History Family History Mother HTN (hypertension) Hypothyroidism Hyperlipidemia Family history of problems with anesthesia: No Surgical History Surgical History H/O colonoscopy History of esophagogastroduodenoscopy (EGD) H/O rectal sphincterotomy Tubal ligation status Hx of section History of Problems with Anesthesia: No Social History Social History Household Members: None Housing: Apartment Alcohol intake: current Alcohol intake frequency: holidays/special occasions only Patient Tobacco Use Status: Former Tobacco user Advance Directives: No Advance Directives Information Provided: Yes Current occupational status: unemployed Sexual orientation: Straight/Heterosexual Gender identity: Female Meds Allergies Allergy/AdvReac Type Severity Reaction Status Date / Time No Known Allergies Allergy Mild N/A Verified 01/09/24 14:54 Active Medications: Current Medications Naloxone HCl (Naloxone Hcl 0.4 Mg/Ml Vial) 0.04 mg IVPUSH Q5M PRN PRN Reason: Excessive sedation or RR < 8 Home Medications ?Medication ?Instructions ?Recorded ?Confirmed ?Last Taken ?Type albuterol sulfate 90 mcg/actuation 2 puff inhalation QID 07/02/21 Unknown History aerosol inhaler (ProAir HFA) atorvastatin 40 mg tablet 40 mg PO DAILY 07/02/21 Unknown History divalproex 500 mg tablet,extended 500 mg PO BID 07/02/21 Unknown History release 24 hr fluoxetine 20 mg capsule 60 mg PO DAILY 09/01/22 Unknown History cholecalciferol (vitamin D3) 50 50 mcg PO DAILY 09/22/22 Unknown History mcg (2,000 unit) tablet (Vitamin D3) fluticasone propionate 50 spray intranasal 09/22/22 Unknown History mcg/actuation nasal spray,suspension trazodone 50 mg tablet 50 mg PO BEDTIME 09/22/22 Unknown History Exam Airway Mallampati Class: II (2 caps lateral) TM Dist: >3cm Neck ROM: Full Heart: rrr Lungs: cta Assessment and Plan Assessment Anesthesia Assessment: Anesthesia Plan Discussed and Chart Reviewed Final Anesthetic Review Family History of Problems with Anesthesia: No History of Problems with Anesthesia: No NPO: Yes ASA Class: II Final Preanesthetic Review: No Changes in Pt Med Stat, Meds/Allgs Chart Reviewed and Consent Obtained/Reviewed Patient Risk: Low Procedure Risk: Intermediate Anesthetic Plan Anesthetic Plan: MAC: Disposition: Standard PACU
[2024-01-11 11:17] VITALS: BP 113/56; PULSE 77; RESP 18; TEMP 36.1; O2SAT 95
[2024-01-11 11:25] VITALS: BMI 28.2
--- NOTE | 2024-01-11 11:25 | MHC.SHP ---
Pre-Procedural Eval Section A - 24 Hr Update-Section A only Date of Service: 01/11/24 The patient is an INPATIENT: No The patient has been examined within 24 hours of the surgical procedure. The History & Physical has been completed within 30 days and I have reviewed it.: Yes Section B - Complete if H&P > 30 days Chief Complaint: Gastro-esophageal reflux disease without esophagit Allergies: Allergies Allergy/AdvReac Type Severity Reaction Status Date / Time No Known Allergies Allergy Mild N/A Verified 01/09/24 14:54 Plan Diagnosis/Plan: Unchanged I have reviewed the history and physical and performed a pertinent physical examination on my patient. No changes have occurred unless specified. Time Spent With Patient Time: Total time managing care of this patient today ____ minutes.
[2024-01-11 11:49] VITALS: BP 97/54; PULSE 88; RESP 16; TEMP 36.2; O2SAT 94
[2024-01-11 12:00] VITALS: BP 115/74; PULSE 74; RESP 16; O2SAT 95
[2024-01-11 12:15] VITALS: BP 127/85; PULSE 63; RESP 16; TEMP 36.1; O2SAT 96
--- NOTE | 2024-01-11 13:43 | P.OP_ITS ---
Operative Note Operative Note Date of Service: 01/11/24 Narrative: Procedure: Esophagogastroduodenoscopy Endoscopist: Tiff Marinelli MD Indication: Dysphagia Anesthesia Provider: Dr Eula Pendleton Anesthesia Type: MAC ?? EGD Procedure:?? The procedure, indications, preparation and potential complications were reviewed with the patient, who indicated understanding and gave written informed consent to proceed. industrial accountant help with the encounter. A physical exam was performed. The endoscope was introduced through the mouth, and advanced to the second part of duodenum. The mucosa was carefully examined on slow withdrawal of the endoscope. The patient tolerated the procedure well. There were no immediate complications.? ? EGD Findings:? * Esophagus:? Erythema and linear erosion noted at the GE junction. The Z-line is at 36 cm. Middle and lower esophagus forceps biopsies were obtained to rule out eosinophilic esophagitis. * Stomach:? Erythema and erosions noted in the antrum. Retroflexion was performed in the cardia. Random cold forceps gastric biopsies were taken to rule out H Pylori infection. * Duodenum:? Erythema, congestion erosions were noted in the duodenal bulb. Remaining mucosa was normal to the extent visualized. Cold forceps biopsies were taken from duodenal bulb and second portion of the duodenum to rule out celiac sprue. Additional intervention: A soft tip Savary wire was advanced through the biopsy channel and left in the antrum. The gastroscope was then backed out. Savary Foreign bougie was advanced over the guidewire and the esophagus was dilated to 16 mm. On relook, there was a small tear noted at GE junction confirming successful dilation. EGD Impressions:? * Grade A esophagitis (biopsy) * GEJ stenosis (dilation) * Gastritis (biopsy) * Duodenitis (biopsy) ?? Recommendations:?? * Follow biopsy results. Our office will call or send a letter with results within 7-10 days. * Continue PPI therapy. * Patient will be booked for repeat EGD for updilation to goal 20 mm to help with dysphagia symptoms. Above has been reviewed with the patient.
== END 2024-01-11 12:40 | disposition home or self-care (01) ==
PROVIDERS: PCP Nurse Practitioner Family; Visit Provider Internal Medicine
PROC: (CPT 43248; principal; 2024-01-11 13:20)
DX: K29.70 Gastritis, unspecified, without bleeding (principal); K29.80 Duodenitis without bleeding; K20.80 Other esophagitis without bleeding; K22.89 Other specified disease of esophagus; K21.9 Gastro-esophageal reflux disease without esophagitis; R13.10 Dysphagia, unspecified; E78.00 Pure hypercholesterolemia, unspecified; G40.909 Epilepsy, unspecified, not intractable, without status epilepticus; Z98.51 Tubal ligation status; J45.909 Unspecified asthma, uncomplicated; Z87.891 Personal history of nicotine dependence; Z79.02 Long term (current) use of antithrombotics/antiplatelets; Z79.899 Other long term (current) drug therapy
CPT/HCPCS: 43248; 43239; 88305; 88313; 88342; C1769; J2003; J2704

== ENCOUNTER → 2024-01-11 10:53 | Outpatient (BNV) | payer OTHER, SELFPAY | PROVIDERS: PCP Nurse Practitioner Family; Visit Provider Internal Medicine | DX: K22.2 Esophageal obstruction (principal); K20.90 Esophagitis, unspecified without bleeding; K29.70 Gastritis, unspecified, without bleeding; K29.80 Duodenitis without bleeding | CPT/HCPCS: 43239; 43248 ==

== ENCOUNTER 2024-03-18 07:49 | Emergency (ER) | payer OTHER, SELFPAY ==
--- NOTE | ~2024-03-18 | XR_ITS ---
EXAMINATION: XR CHEST CLINICAL INFORMATION: cough, fever COMPARISON: 03/17/2021 TECHNIQUE: 2 views of the chest were obtained. FINDINGS: There is no gross pneumothorax. Lung volumes are low. Heart size is normal. No significant pleural effusion. Mild streaky opacities at the left lung base. Mild degenerative changes in the thoracic spine. XR/XR chest 2V IMPRESSION: Mild streaky opacities at the left lung base. This study was presented today to March 18, 2024 for interpretation. Stat results provided at this time as requested by referring provider. Electronically signed by: Caitlyn Cuba MD 03/18/2024 09:09 AM STEPHANIE
[2024-03-18 07:53] VITALS: BP 145/93; PULSE 97; RESP 16; TEMP 37.2; O2SAT 96; BMI 25.5
--- NOTE | 2024-03-18 08:14 | ED.URI ---
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 URI symptoms cough with subj fevers and sputum production no chest pain but has chills and body aches - no recent travel or procedures. Feels mild dyspnea with her asthma 2. R inner thigh boil x 3 days no drainage but is painful she gets these and they come and go in the past. No known hx of MRSA. MD elicited complaint: fever and cough Onset (ago): day(s) (4) Consistency: intermittent Severity: moderate Description of mucous: yellow Able to tolerate fluids by mouth: Yes Exacerbating factors: exertion and other (coughing) Relieving factors: nothing Associated symptoms: fever, chills, cough, shortness of breath and other (boil) Treatments prior to arrival: none Related Data Home Medications ?Medication ?Instructions ?Recorded ?Confirmed albuterol sulfate 90 mcg/actuation 2 puff inhalation QID 07/02/21 aerosol inhaler (ProAir HFA) atorvastatin 40 mg tablet 40 mg PO DAILY 07/02/21 divalproex 500 mg tablet,extended 500 mg PO BID 07/02/21 release 24 hr fluoxetine 20 mg capsule 60 mg PO DAILY 09/01/22 cholecalciferol (vitamin D3) 50 50 mcg PO DAILY 09/22/22 mcg (2,000 unit) tablet (Vitamin D3) fluticasone propionate 50 spray intranasal 09/22/22 mcg/actuation nasal spray,suspension trazodone 50 mg tablet 50 mg PO BEDTIME 09/22/22 Previous Rx's ?Medication ?Instructions ?Recorded pantoprazole 40 mg tablet,delayed 40 mg PO BID 30 days #60 tabs 01/09/24 release amoxicillin 875 mg-potassium 1 tab PO BID #14 tabs 03/18/24 clavulanate 125 mg tablet prednisone 20 mg tablet 40 mg (2 x 20 mg) PO DAILY 4 days 03/18/24 #8 tabs Allergies Allergy/AdvReac Type Severity Reaction Status Date / Time No Known Allergies Allergy Mild N/A Verified 03/18/24 07:53 Review of Systems Review of Systems: Constitutional : No Fever, No Chills ENT/Mouth : No Hoarseness, No sore throat, pos Rhinorrhea Eyes: No Redness, No Discharge, No Vision Changes Cardiovascular : No Chest Pain, positive SO Respiratory : positive Cough, pos Sputum, positive Wheezing, Gastrointestinal : No Nausea, No Vomiting, No Diarrhea, No abdominal Pain Genitourinary : No Dysuria, No Hematuria Musculoskeletal : No joint pain, No Myalgias Skin : No rash, pos boil Neuro : No Weakness, No Numbness, No Headache Psych : No anxiety, depression All other systems reviewed and are negative REPLACED BY [facility] Past Medical History Attestation statement: The following information was validated with the patient. Source: old records reviewed Medical History Colon cancer screening H. pylori infection High cholesterol Epilepsy Surgical History H/O colonoscopy History of esophagogastroduodenoscopy (EGD) H/O rectal sphincterotomy Tubal ligation status Hx of section Family History Family History Mother HTN (hypertension) Hypothyroidism Hyperlipidemia Social History Social History Household Members: None Housing: Apartment Are you a primary acute care clinical nurse specialist to a significant other at home: No Do you presently have visiting nurse or other home services: No Alcohol intake: current Alcohol intake frequency: a few times a week Patient Tobacco Use Status: Former Tobacco user Advance Directives: No Advance Directives Information Provided: No Do you have a plan to hurt others: No Plan Current occupational status: unemployed Sexual orientation: Straight/Heterosexual Gender identity: Female Physical Exam Vital Signs: Vital Signs: Last Vital Signs Temp 99.0 F 03/18/24 07:53 Pulse 97 03/18/24 08:24 Resp 16 03/18/24 08:24 BP 145/93 H 03/18/24 07:53 Pulse Ox 96 03/18/24 07:53 O2 Del Method Room Air 03/18/24 07:53 BMI result Body Mass Index 25.5 Appearance: Alert. Oriented X3. No acute distress. Eyes: Pupils equal, round and reactive to light. ENT: Pharynx normal. Neck: Normal inspection. Neck supple. CVS: Normal heart rate and rhythm. Pulses normal. Respiratory: No respiratory distress. Breath sounds diminished with rhonchi and wheezing throughout Abdomen: Soft and non-tender. Skin: Skin warm and dry. Normal skin color. Extremities: No lower extremity edema. R groin small 2cm boil - no surrounding erythema no drainage, localized with fluctuanct point Neuro: Oriented X 3. No motor deficit. No sensory deficit. Medications Administered Discontinued Medications Generic Name Dose Route Start Last Admin Trade Name Freq PRN Reason Stop Dose Admin Amoxicillin/Clavulanate Potassium 875 mg 03/18/24 08:17 03/18/24 08:22 Amoxicillin/Potassium Clav 875 Mg Tablet PO 03/18/24 08:18 875 mg ONCE ONE Administration Albuterol Sulfate 2.5 mg/ 0 mg 03/18/24 08:24 03/18/24 08:28 Albuterol/Ipratropium 3 ml INHALE 03/18/24 08:25 1 dose ONCE ONE Administration Hydrocodone Bit/Homatropine Methylb 5 ml 03/18/24 08:14 03/18/24 08:22 Hydrocodone/Homat 5/1.5/5 Ml 5 Ml Syrup PO 03/18/24 08:15 5 ml ONCE ONE Administration Prednisone 40 mg 03/18/24 08:14 03/18/24 08:22 Prednisone 20 Mg Tablet PO 03/18/24 08:15 40 mg ONCE ONE Administration Lidocaine/Epinephrine/Tetracaine 3 ml 03/18/24 08:14 03/18/24 08:22 Lidocaine/Epineph/Tetracaine 3 Ml Gel.Pf.Jh TOPICAL 03/18/24 08:15 3 ml ONCE ONE Administration Protocol Medical Decision Making Medical Decision Making MDM Narrative: 53 yo female with PMH of asthma has rescue inhaler at home, GERD s/p EGD with dilation about a month ago, seizures, HLD, depression here with URI symptoms and concern for viral syndrome vs bronchitis vs pneumonia. Not toxic and no resp distress - viral panel, CXR, nebs and steroids. Given boil on leg will unroof and drain - no signs of crepitus or surrounding cellulitis - start on augmentin, no hx of MRSA Differential Diagnosis Differential Diagnoses: The differential diagnosis associated with the presentation includes URI, asthma, bronchitis, pneumonia, boil Admission/Observation Consideration of admission/observation: Escalation of care including admission/observation considered no resp distress, not toxic can be started on oral medications Lab Data MDM Lab Attestation statement: I reviewed the patient's lab results. Labs: Lab Results 03/18/24 Range/Units 08:15 Influenza Type A (PCR) NEGATIVE (Negative) Influenza Type B (PCR) NEGATIVE (Negative) RSV RNA Qual (PCR) NEGATIVE (Negative) SARS-CoV-2 RNA (RT-PCR) NEGATIVE (Negative) Independent Interpretation I performed an independent interpretation of an: Plain X-Ray Radiology Impression Discussion of test interpretation with radiology: I have reviewed the radiologist's reading. Procedures Abscess I/D Site: lower extremity Side (if applicable): right Local Anesthetic: other anesthetic Technique: needle aspiration Amount of fluid expressed (mL): 3 Sent for culture/gram staining?: No Irrigation: No Packing used?: none Discharge Plan Discharge Clinical Impression: Bronchitis, Abscess Patient Disposition: Home, Self-Care Instructions: Acute Bronchitis (ED), Abscess (ED) Additional Instructions: return for any worsening symptoms or concerns CXR no pneumonia negative for flu covid rsv next dose of antibiotics tonight keep abscess clean dry and covered it is okay to shower take prednisone tomrrow take it with food On amoxicillin-clavulanate, softer bowel movements are to be expected. Call your provider if you move your bowels more than 4 times a day, your bowel movements are almost all liquid, or you get a rash.? Prescriptions: New prednisone 20 mg tablet 40 mg PO DAILY 4 Days Qty: 8 0RF amoxicillin-pot clavulanate 875-125 mg tablet 1 tab PO BID Qty: 14 0RF No Action atorvastatin 40 mg tablet 40 mg PO DAILY albuterol sulfate [ProAir HFA] 90 mcg/actuation HFA aerosol inhaler 2 puff inhalation QID divalproex 500 mg tablet extended release 24 hr 500 mg PO BID fluoxetine 20 mg capsule 60 mg PO DAILY cholecalciferol (vitamin D3) [Vitamin D3] 50 mcg (2,000 unit) tablet 50 mcg PO DAILY fluticasone propionate 50 mcg/actuation spray,suspension intranasal trazodone 50 mg tablet 50 mg PO BEDTIME pantoprazole 40 mg tablet,delayed release (DR/EC) 40 mg PO BID 30 Days Qty: 60 6RF Print Language: Bahamian
[2024-03-18] MEDS: predniSONE 20 MG TABLET 40 MG PO (08:22)
[2024-03-18] MEDS: Amoxicillin/Potassium Clav 875 MG TABLET PO (08:22)
[2024-03-18] MEDS: Lidocaine/Epineph/Tetracaine 3 ML GEL.PF.APP TOPICAL (08:22)
[2024-03-18] MEDS: HYDROcodone/Homat 5/1.5/5 ML 5 ML SYRUP PO (08:22)
[2024-03-18 08:24] VITALS: PULSE 97; RESP 16; O2SAT 96
[2024-03-18] MEDS: Albuterol Sulfate 2.5 MG, Albuterol/Iprat 2.5/0.5MG 3 ML 3 ML INHALE (08:28)
--- NOTE | 2024-03-18 08:28 | PC.NURSE ---
a&ox4. vss and up to date. pt presents to the ED w/ multiple complaints including URI sx a 3 days including fever/chills/body aches/productive cough and sob induced by hx of asthma. pt seems to be in no respiratory distress - nos ob/wob noted. respirations even/unlabored. pt also c/o abscess noted to left inner thigh. denies any drainage/foul odor. swabs obtained/sent to lab. medication administered per provider order. topical numbing agent applied to affected area. chest xray results pending at this time. pt receiving breathing tx via RT. plan of care ongoing. call biswas placed within reach.
--- NOTE | 2024-03-18 08:37 | PC.NURSE ---
a&ox4. vss and up to date. pt presents to the ED w/ multiple complaints including URI sx a 3 days including fever/chills/body aches/productive cough and sob induced by hx of asthma. pt seems to be in no respiratory distress - nos sob/wob noted. respirations even/unlabored. pt also c/o abscess noted to right inner thigh. denies any drainage/foul odor. swabs obtained/sent to lab. medication administered per provider order. topical numbing agent applied to affected area. chest xray results pending at this time. pt receiving breathing tx via RT. plan of care ongoing. call biswas placed within reach.
[2024-03-18 09:00] LABS: Influenza A PCR NEGATIVE (Negative); Influenza B PCR NEGATIVE (Negative); Resp Syncy Virus RNA Qual PCR NEGATIVE (Negative); SARS COV2 PCR INHOUSE NEGATIVE (Negative)
[2024-03-18 09:22] VITALS: BP 143/89; PULSE 92; RESP 16; TEMP 37.2; O2SAT 97
--- NOTE | 2024-03-18 09:22 | PC.NURSE ---
abscess drained. pt tolerated well.
== END 2024-03-18 09:32 | disposition home or self-care (01) ==
PROVIDERS: Emergency Provider Emergency Medicine; PCP Nurse Practitioner Family
DX: M79.10 Myalgia, unspecified site (principal); R05.9 Cough, unspecified; R06.02 Shortness of breath; R50.9 Fever, unspecified; Z03.818 Encounter for observation for suspected exposure to other biological agents ruled out
CPT/HCPCS: 0241U; 71046; 94640; 99283; 99284

== ENCOUNTER 2024-09-03 12:15 | Outpatient (REF) | payer OTHER, SELFPAY ==
[2024-09-03 12:31] LABS: MANUAL DIFF FLAG NO
[2024-09-03 12:38] LABS: Basophils Absolute Auto 0.1 X10*3/uL (0.0-0.2); Eosinophils Absolute Auto 0.1 X10*3/uL (0.0-0.4); Eosinophils Percent Auto 2.3 % (0-4); Hematocrit 43.5 % (37.0-47.0); Hemoglobin 14.3 g/dl (12.0-16.0); Imm Gran Abs Auto 0.01 X10*3/uL (0.00-0.03); Imm Gran Pct Auto 0.2 % (0.0-0.4); Lymphocytes Absolute Auto 1.8 X10*3/uL (1.2-4.9); Lymphocytes Percent Auto 34.9 % (20-40); Mean Corpuscular HGB Conc 32.9 g/dl (31.0-35.0); Mean Corpuscular Hemoglobin 32.9 pg (27.0-33.0); Mean Platelet Volume 10.1 fL (9.4-12.3); Monocytes Absolute Auto 0.6 X10*3/uL (0.1-1.2); Monocytes Percent Auto 12.2 % (2-11); Neutrophils Absolute Auto 2.6 x10*3/uL (2.0-8.3); Neutrophils Percent Auto 49.4 % (45-73); Platelet Count 324 X10*3/uL (160-400); Red Blood Count 4.35 X10*6/uL (4.20-5.50); Red Cell Distribution Width 13.1 % (11.0-16.0); White Blood Count 5.2 X10*3/uL (4.8-10.8)
[2024-09-03 13:16] LABS: Alanine Aminotransferase 37 U/L (0-31); Albumin Level 4.5 g/dL (3.5-5.0); Alkaline Phosphatase 80 U/L (39-117); Anion Gap 13 (12-20); Aspartate Amino Transferase 37 U/L (5-31); Bilirubin Total 0.4 mg/dL (0.0-1.0); Blood Urea Nitrogen 22 mg/dL (9-16); Calcium 10.1 mg/dL (8.4-10.2); Carbon Dioxide 30 mmol/L (22-29); Chloride 104 mmol/L (96-108); Estimated Glomerular Filt Rate > 60; Glucose Random 114 mg/dL (60-115); Potassium 4.2 mmol/L (3.3-5.1); Sodium 143 mmol/L (135-145); Total Protein 7.5 g/dL (6.5-8.0); Valproate 18.5 mcg/mL (50.0-100.0)
== END 2024-09-03 12:16 | disposition home or self-care (01) ==
LOC: HO.LAB 12:15
PROVIDERS: PCP Nurse Practitioner Family; Visit Provider Nurse Practitioner Family
DX: R56.9 Unspecified convulsions (principal)
CPT/HCPCS: 36415; 80053; 80164; 85025

== ENCOUNTER 2024-10-02 13:39 | Outpatient (AMB) | payer OTHER, SELFPAY ==
--- NOTE | 2024-10-02 13:41 | A.OFFVIS_ITS ---
Vital Signs 10/02/24 13:54 Height 5 ft 4 in Weight 150 lb BMI 25.7 BP 138/81 Blood Pressure Location Lt brachial Position Sitting Pulse 88 Pulse Oximetry (%) 96 Oxygen Delivery Method Room Air Intake Visit Reasons: s/p egd Intake Note: Patient followup for EGD result. Patient cc: chocking sensation on her esophagus on and off, acid reflex and denies any other GI issues. Credit Rating Inspector Required: No Accompanied by: Friend Allergies No Known Allergies Allergy (Mild, Verified 10/02/24 13:53) N/A HPI HPI s/p egd: Details: Assessment & Plan (1) Pre-op examination: Code(s): Z01.818 - Encounter for other preprocedural examination Category: Medical (2) Dysphagia: Code(s): R13.10 - Dysphagia, unspecified Category: Medical (3) GERD (gastroesophageal reflux disease): Code(s): K21.9 - Gastro-esophageal reflux disease without esophagitis Category: Medical (4) Epilepsy: Code(s): G40.909 - Epilepsy, unspecified, not intractable, without status epilepticus Category: Medical Plan Russian #Tristan Live Patient has been lost follow-up since 09/2022 She was away on vacation overseas and that is why she has not been seen in over a year. She was traveling in the [place] and [place]. She has had the problems for >3 mos and has been out of her medications for about the same time, she also had some dietary indiscretions while traveling. Her asthma is well controlled as is her seizure disorder (depakote - via PCP) and she denies cardiac problems. No ID problems. She is agreeable to going for lab work for anesthesia and sedation purposes and preop clearance. Restart bid pantorpazole 40mg and ROV 6 weeks. Orders: Orders Complete Blood Count Auto Diff 01/09/24 K21.9 - Gastro-esophageal reflux disease without esophagitis, R13.10 - Dysphagia, unspecified EGD - GI Use Only 01/09/24 K21.9 - Gastro-esophageal reflux disease without esophagitis, R13.10 - Dysphagia, unspecified Comprehensive Met. Panel 01/09/24 K21.9 - Gastro-esophageal reflux disease without esophagitis, R13.10 - Dysphagia, unspecified Medications: Changed From pantoprazole 40 mg PO BID 14 days 28 tabs 0RF K21.9 - Gastro-esophageal reflux disease without esophagitis To pantoprazole 40 mg PO BID 60 tabs 6RF 30 days K21.9 - Gastro-esophageal reflux disease without esophagitis EGD 01/11/2024 EGD Findings:? * Esophagus:? Erythema and linear erosion noted at the GE junction. The Z-line is at 36 cm. Middle and lower esophagus forceps biopsies were obtained to rule out eosinophilic esophagitis. * Stomach:? Erythema and erosions noted in the antrum. Retroflexion was performed in the cardia. Random cold forceps gastric biopsies were taken to rule out H Pylori infection. * Duodenum:? Erythema, congestion erosions were noted in the duodenal bulb. Remaining mucosa was normal to the extent visualized. Cold forceps biopsies were taken from duodenal bulb and second portion of the duodenum to rule out celiac sprue. Additional intervention: A soft tip Savary wire was advanced through the biopsy channel and left in the antrum. The gastroscope was then backed out. Savary Foreign bougie was advanced over the guidewire and the esophagus was dilated to 16 mm. On relook, there was a small tear noted at GE junction confirming successful dilation. EGD Impressions:? * Grade A esophagitis (biopsy) * GEJ stenosis (dilation) * Gastritis (biopsy) * Duodenitis (biopsy)?? Recommendations:?? * Follow biopsy results. Our office will call or send a letter with results within 7-10 days. * Continue PPI therapy. * Patient will be booked for repeat EGD for updilation to goal 20 mm to help with dysphagia symptoms. Received: 01/11/24 ADDENDUM REPORT Addendum Addendum #1 Immunostain for H. pylori on B is negative. Additional level with AB/PAS on A shows no evidence of chronic injury. Controls stain appropriately. Electronically Signed By: Jackie Martin 01/16/24 1636 Diagnosis A. Duodenum, biopsy: Duodenal mucosa with predominantly preserved villi, mild reactive changes, and no evidence of chronic injury on initial levels. B. Stomach, random, biopsy: Gastric antral and body mucosa with minimal chronic inactive gastritis; negative for intestinal metaplasia and dysplasia. C. Esophagus, lower, biopsy: Squamous mucosa with hyperplasia, mild spongiosis, and focal mild increased intraepithelial lymphocytes, suggesting esophagitis; cannot exclude lymphocytic esophagitis (clinical correlation necessary); no columnar mucosa present TODAYS VISIT Russian #Friend translates per pt request She is doing well on her pantorpaozle bid. Printed GERD diet in Greenlandic ROV 6 mos. [facility] Medical History (Updated 10/02/24 @ 17:17 by DARIANA Salguero) Pre-op examination Well woman exam Colon cancer screening H. pylori infection High cholesterol Epilepsy Surgical History H/O colonoscopy History of esophagogastroduodenoscopy (EGD) H/O rectal sphincterotomy Tubal ligation status Hx of section Family History Mother HTN (hypertension) Hypothyroidism Hyperlipidemia Social History Household Members: None Housing: Apartment Are you a primary certified social workers in health care to a significant other at home: No Do you presently have visiting nurse or other home services: No Alcohol intake: current Alcohol intake frequency: a few times a week Patient Tobacco Use Status: Former Tobacco user Current occupational status: unemployed Sexual orientation: Straight/Heterosexual Gender identity: Female Female Reproductive History Menstrual Age of Menarche: 12 Review of Systems Const Denies fatigue, Denies fever(s), Denies night sweats, Denies poor appetite and Denies weight loss ENT Reports Normal hearing present, Denies dental pain, Denies dysphagia, Denies hearing loss, Denies mouth pain, Denies odynophagia, Denies throat swelling, Denies tongue swelling and Reports other (Dentition adequate) Card Reports no additional complaints Resp Reports no additional complaints GI Details: Denies abdominal pain, Denies melena, Denies bloating, Denies hematochezia, Denies constipation, Denies GI cramping, Denies dysphagia, Denies excessive flatus, Denies early satiety, Reports heartburn, Denies diarrhea, Denies nausea, Denies odynophagia, Denies vomiting and Denies hematemesis Skin/Breast Denies pruritus, Denies lesions, Denies rash and Denies jaundice Neuro Reports Normal hearing present and Denies Abnormal speech present Endo Denies fatigue Aller/Immun Denies throat swelling and Denies tongue swelling Physical Exam Vital Signs: Last Vital Signs Pulse 88 10/02/24 13:54 BP 138/81 10/02/24 13:54 Pulse Ox 96 10/02/24 13:54 Oxygen Delivery Method Room Air 10/02/24 13:54 BMI result Body Mass Index 25.7 Const General: cooperative, no acute distress, well developed and well groomed Nutritional Appearance: well nourished Orientation/consciousness: oriented to person, oriented to place and oriented to time Limitations: language barrier HEENT Head: Yes normocephalic and Yes atraumatic Eyes General: appearance normal, both eyes and all related structures Pupils: Equal, round and reactive pupils present Neck Neck: Yes normal visual inspection and Yes no lymphadenopathy Thyroid: Thyroid normal Resp Effort & Inspection: normal respiratory effort and able to speak in complete sentences Auscultation: clear to auscultation bilaterally Cardio Rate: regular rate Rhythm: regular rhythm Heart sounds: Normal, physiologic split S2 sound present Peripheral pulses: radial pulses present and posterior tibial pulses present GI Inspection: No distended and No Abdominal panniculus present Palpation (GI): Soft to palpation, nontender, no guarding, not rigid and No hepatosplenomegaly present Percussion: Yes normal to percussion Auscultation: normal bowel sounds Rectal Exam - Female: deferred Skin General skin exam: no rashes or lesions noted, turgor normal, skin not dry, no jaundice, No spider nevi and no striae Rashes: no rashes Nails: normal Neuro General: oriented to person, oriented to place and oriented to time Cranial nerves: Yes Equal, round and reactive pupils present and Yes Normal hearing present Speech: No Abnormal speech present Extrem General: Yes normal to inspection, No clubbing, No cyanosis and No edema Psych Appearance: grossly normal and well kempt Mental Status: mental status grossly normal Speech and movement: Normal speech and movement present Affect: normal affect Attitude: cooperative Thought process: Normal thought process present and not confabulating Thought content: Normal thought content present Insight: Fair insight present (Psych) Judgement: Fair judgement present (Psych) Results Reviewed Results Reviewed: EGD 01/11/2024 EGD Findings:? * Esophagus:? Erythema and linear erosion noted at the GE junction. The Z-line is at 36 cm. Middle and lower esophagus forceps biopsies were obtained to rule out eosinophilic esophagitis. * Stomach:? Erythema and erosions noted in the antrum. Retroflexion was performed in the cardia. Random cold forceps gastric biopsies were taken to rule out H Pylori infection. * Duodenum:? Erythema, congestion erosions were noted in the duodenal bulb. Remaining mucosa was normal to the extent visualized. Cold forceps biopsies were taken from duodenal bulb and second portion of the duodenum to rule out celiac sprue. Additional intervention: A soft tip Savary wire was advanced through the biopsy channel and left in the antrum. The gastroscope was then backed out. Savary Foreign bougie was advanced over the guidewire and the esophagus was dilated to 16 mm. On relook, there was a small tear noted at GE junction confirming successful dilation. EGD Impressions:? * Grade A esophagitis (biopsy) * GEJ stenosis (dilation) * Gastritis (biopsy) * Duodenitis (biopsy)?? Recommendations:?? * Follow biopsy results. Our office will call or send a letter with results within 7-10 days. * Continue PPI therapy. * Patient will be booked for repeat EGD for updilation to goal 20 mm to help with dysphagia symptoms. Received: 01/11/24 ADDENDUM REPORT Addendum Addendum #1 Immunostain for H. pylori on B is negative. Additional level with AB/PAS on A shows no evidence of chronic injury. Controls stain appropriately. Electronically Signed By: Jackie Martin 01/16/24 1200 Diagnosis A. Duodenum, biopsy: Duodenal mucosa with predominantly preserved villi, mild reactive changes, and no evidence of chronic injury on initial levels. B. Stomach, random, biopsy: Gastric antral and body mucosa with minimal chronic inactive gastritis; negative for intestinal metaplasia and dysplasia. C. Esophagus, lower, biopsy: Squamous mucosa with hyperplasia, mild spongiosis, and focal mild increased intraepithelial lymphocytes, suggesting esophagitis; cannot exclude lymphocytic esophagitis (clinical correlation necessary); no columnar mucosa present Assessment & Plan Assessment & Plan (1) GERD (gastroesophageal reflux disease): Code(s): K21.9 - Gastro-esophageal reflux disease without esophagitis Category: Medical (2) Dysphagia: Comment: IMPROVED AFTER DILATION Code(s): R13.10 - Dysphagia, unspecified Category: Medical Plan Russian #Friend translates per pt request She is doing well on her pantorpaozle bid. Printed GERD diet in Greenlandic ROV 6 mos. Medications: Refilled pantoprazole 40 mg PO BID 180 tabs 2RF K21.9 - Gastro-esophageal reflux disease without esophagitis Discontinued prednisone Discontinued Reason: Doctor's Order 40 mg (2 x 20 mg) PO DAILY 4 days 8 tabs 0RF amoxicillin-pot clavulanate 875-125 mg Discontinued Reason: Doctor's Order 1 tab PO BID 14 tabs 0RF Coding Level of Care Code Est Pt Level 3 (87842) Diagnoses GERD (gastroesophageal reflux disease) K21.9 Dysphagia R13.10
[2024-10-02 13:54] VITALS: BP 138/81; PULSE 88; O2SAT 96; BMI 25.7
== END 2024-10-02 14:25 | disposition home or self-care (01) ==
LOC: HO.HGI 13:39
PROVIDERS: PCP Nurse Practitioner Family; Visit Provider Nurse Practitioner
DX: K21.9 Gastro-esophageal reflux disease without esophagitis (principal); R13.10 Dysphagia, unspecified
CPT/HCPCS: 99213

== ENCOUNTER → 2024-10-02 13:39 | Outpatient (BNVA) | payer OTHER, SELFPAY | PROVIDERS: PCP Nurse Practitioner Family; Visit Provider Nurse Practitioner | DX: Z01.818 Encounter for other preprocedural examination (principal); R13.10 Dysphagia, unspecified; K21.9 Gastro-esophageal reflux disease without esophagitis; G40.909 Epilepsy, unspecified, not intractable, without status epilepticus | CPT/HCPCS: 99212 ==